=== PATIENT | female | born 1985 | race Caucasian/White ===

== ENCOUNTER 2019-10-25 21:37 | Emergency (ER) | payer OTHER ==
[~2019-10-25] VITALS: Ht 154.9 cm; Wt 63.5 kg
[2019-10-25 22:45] LABS: ABSOLUTE EOSINOPHILS 0.1 thou/uL (0.0-0.7); ABSOLUTE LYMPHOCYTES 1.8 thou/uL (0.8-5.3); ABSOLUTE MONOCYTES 0.6 thou/uL (0.0-1.2); ABSOLUTE NEUTROPHILS 7.8 thou/uL (1.6-8.1); BASOPHILS 0.4 %; EOSINOPHILS 0.6 %; HEMATOCRIT 39.3 % (37.0-47.0); LYMPHOCYTES 17.6 %; MCH 30.7 pg (26.0-34.0); MCHC 35.6 g/dL (28.0-37.0); MCV 86.2 fL (80.0-100.0); MONOCYTES 6.1 %; MPV 8.7 fl. (7.2-11.1); NUCLEATED RBCS 0 /100WBC; PLATELET COUNT* 239 thou/uL (150-400); POLYS 75.3 %; RBC 4.56 mil/uL (4.20-5.00); RDW-CV 12.5 % (10.5-14.5); WBC 10.3 thou/uL (4.0-11.0)
[2019-10-25 22:51] LABS: CALCIUM 8.4 mg/dL (8.5-10.1); CREATININE 0.8 mg/dL (0.6-1.3); POTASSIUM 3.8 mmol/L (3.5-5.1)
[2019-10-26] MEDS ORDERED: FLEXERIL PO (00:49)
[2019-10-26] MEDS ORDERED: LORCET 5-325 M1 EACH PO (00:49)
[2019-10-26 01:00] VITALS: BP 122/62
== END 2019-10-26 01:00 | disposition home or self-care (01) ==
LOC: EDBD 21:37 → M.ERS 21:37 → EDSEX 21:37 → M.ERS 10-26 01:00
PROVIDERS: Emergency Medicine
DX: M54.2 Cervicalgia (principal); M25.511 Pain in right shoulder; R51 Headache; M54.5 Low back pain; Z98.890 Other specified postprocedural states; V49.88XA Car occupant (driver) (passenger) injured in other specified transport accidents, initial encounter; Y93.89 Activity, other specified; Y92.413 State road as the place of occurrence of the external cause; Y99.9 Unspecified external cause status